=== PATIENT | female | born 2000 | race Caucasian/White ===

== ENCOUNTER 2022-08-27 10:51 | Emergency (ER) | payer OTHER ==
--- NOTE | 2022-08-27 12:07 | ERPHSYRPT ---
- History of Present Illness Source: patient Exam Limitations: no limitations Patient Subjective Stated Complaint: "I get nervous with needles, I was getting my labs drawn and got some chest pain". Triage Nursing Assessment: Pt presents to ER from Outpatient labs for a near syncopal episode during lab draw. Pt admits to having fear of needles and "chest pains" when she gets nervous. Not diagnosed with anxiety but states she thinks it maybe. Pt is alert and oriented x 3 upon arrival to ER. Skin is hot and diaphretic. Pt denies any pain. Pt states feels better now and doesn't have many complaints. Lab staff states she was having outpatient labs due to chest pain complaints so they thought she should be evaluated in ER. Pt consents to being seen in ER. Witnessed: unwitnessed, other Prior Episodes: single episode today Timing/Duration: today Precipitating Factors: none Loss of Consciousness: brief (seconds) Charcter of event(s): felt faint, almost passed out Hx Tetanus, Diphtheria Vaccination/Date Given: Yes Hx Influenza Vaccination/Date Given: Yes Hx Pneumococcal Vaccination/Date Given: No Immunizations Up to Date: Yes <SHRADDHA MICHAEL - Last Filed: 08/27/22 13:30> <MUKESH DYSON - Last Filed: 08/27/22 14:04> - History of Present Illness Time Seen by Provider: 08/27/22 11:29 Physician History: This is a 22-year-old patient with known history of panic attacks and syncope presenting to the ED after witnessed syncopal episode at the lab . Patient states that she has had panic attacks for a year, history of intermittent syncopal episodes for a year. -Does not know if she has any triggers for the panic attacks or for syncopal episode. -Reports a syncopal episode is not positional, denies any chest pain with, denies headache. -States that she had gone to her primary care physician today to discuss panic attack, and the PCP ordered some lab. -Patient was at the lab during her blood work done, that she is scared of need, dates that she thinks she had another panic attack where felt left-sided chest pain and then she passed out a few minutes. Patient thinks she got diaphoretic and nauseous during the episode. States that she is scared of needles. -Ports that she is completely fine now. -She denies any fever/abdominal pain/shortness of breath/pulm bladder symptoms -LMP was 1 month ago -Chest pain-states that she felt left-sided chest pain for she passed out. Reports intermittent history of chest pain, no aggravating or relieving symptoms, nonradiating. (SHRADDHA MICHAEL) Allergies/Adverse Reactions: No Known Drug Allergies Allergy (Verified 08/27/22 11:30) Travel Risk - International Travel Have you traveled outside of the country in past 3 weeks: No - Coronavirus Screening Are you exhibiting any of the following symptoms?: No Close contact with a COVID-19 positive Pt in past 14-21 Days: No - Vaccine Status Have you recieved a Covid-19 vaccination: Yes Slot Attendant: Moderna - Vaccination Dates Date of 2cond Vaccination (if applicable): n/a <REHANASHRADDHA BAZZI - Last Filed: 08/27/22 13:30> - Past Medical History Pertinent Past Medical History: No - Past Surgical History Past Surgical History: No - Social History Smoking Status: Never smoker Exposure to second hand smoke: No Drug Use: none Patient Lives Alone: No - Female History Hx Last Menstrual Period: 07/14/2022 Hx Now: No <REHANAJLUISSHRADDHA - Last Filed: 08/27/22 13:30> - Review of Systems Constitutional: No Symptoms Eyes: No Symptoms Ears, Nose, & Throat: No Symptoms Respiratory: No Symptoms Cardiac: Chest Pain, Syncope, No Palpitations Genitourinary Symptoms: No Symptoms Musculoskeletal: No Symptoms Skin: No Symptoms Neurological: No Symptoms Psychological: No Symptoms All Other Systems: Reviewed and Negative <REHANASHRADDHA BAZZI - Last Filed: 08/27/22 13:30> Physical Exam - Thornton Coma Scale Best Eye Response (Thornton): (4) open spontaneously Best Verbal Response (Jerald): (5) oriented Best Motor Response (Thornton): (6) obeys commands Thornton Total: 15 - Physical Exam Eye Exam: bilateral eye: normal inspection, PERRL, EOMI Ears, Nose, Throat Exam: normal ENT inspection, TMs normal, pharynx normal, moist mucous membranes, pharyngeal erythema Neck Exam: normal inspection, non-tender, supple, full range of motion Respiratory: normal breath sounds, lungs clear, airway intact Cardiovascular: regular rate/rhythm, normal heart sounds, normal peripheral pulses Gastrointestinal: soft, normal bowel sounds, No tenderness Back Exam: normal inspection Extremity Exam: normal inspection, normal range of motion Peripheral Pulses: carotid (R): 4+, carotid (L): 4+, dorsalis-pedis (R): 4+, dorsalis-pedis (L): 4+ Mental Status: alert, oriented x 3, cooperative, 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 Exam: normal hearing, normal speech, PERRL Coordination/Gait: normal finger to nose, normal gait, normal cerebellar function Motor/Sensory: no motor deficit, no sensory deficit Skin Exam: normal color SpO2: 97 <SHRADDHA MICHAEL - Last Filed: 08/27/22 13:30> - Nursing Vital Signs Nursing Vital Signs: Initial Vital Signs Temperature 97.6 F 08/27/22 11:23 Pulse Rate 82 08/27/22 11:23 Respiratory Rate 18 08/27/22 11:23 Blood Pressure 119/68 08/27/22 11:23 O2 Sat by Pulse Oximetry 97 08/27/22 11:23 Pain Scale Pain Intensity 0 - Course Nursing assessment & vital signs reviewed: Yes EKG Interpreted by Me: Sinus Rhythm Rhythm Strip: Rate, Normal Sinus Rhythm <REHANASHRADDHA BAZZI - Last Filed: 08/27/22 13:30> Ordered Tests: Active Orders 24 hr Category Date Time Status EKG-ER Only STAT Care 08/27/22 11:55 Active CHEST 1 VIEW (PORTABLE) Stat Exams 08/27/22 11:56 Completed BMP Stat Lab 08/27/22 12:15 Completed CBC W DIFF Routine Lab 08/27/22 10:57 Completed CBC W DIFF Stat Lab 08/27/22 11:55 Completed CK-Creatinine Phosphokinase Stat Lab 08/27/22 12:15 Completed CMP Routine Lab 08/27/22 10:57 Completed CULTURE,URINE Stat Lab 08/27/22 13:12 Received HCG QUALITATIVE,SERUM Stat Lab 08/27/22 12:15 Completed LIPID PROFILE Routine Lab 08/27/22 10:57 Completed TROPONIN Q4H Lab 08/27/22 12:15 Completed TROPONIN Q4H Lab 08/27/22 16:00 Ordered TROPONIN Q4H Lab 08/27/22 20:00 Ordered TSH, 3RD Generation Routine Lab 08/27/22 10:57 Completed UA W/RFX UR CULTURE Stat Lab 08/27/22 13:12 Completed Lab/Rad Data: Laboratory Result Diagrams 08/27/22 11:55 08/27/22 12:15 Laboratory Results 08/27/22 08/27/22 08/27/22 Range/Units 13:12 12:15 12:15 WBC (4.0-10.5) x10^3/uL RBC (4.1-5.4) x10^6/uL Hgb (12.0-16.0) g/dL Hct (35-47) % MCV (78-100) fL MCH (26-32) pg MCHC (32-36) g/dL RDW (11.5-14.0) % Plt Count (150-450) x10^3/uL MPV (7.5-11.0) fL Gran % (36.0-66.0) % Immature Gran % (Auto) (0.00-0.4) % Nucleat RBC Rel Count (0.00-0.1) % Eos # (Auto) (0-0.5) x10^3/uL Immature Gran # (Auto) (0.00-0.03) x10^3u/L Absolute Lymphs (auto) (1.0-4.6) x10^3/uL Absolute Monos (auto) (0.0-1.3) x10^3/uL Absolute Nucleated RBC (0.00-0.01) x10^3u/L Lymphocytes % (24.0-44.0) % Monocytes % (0.0-12.0) % Eosinophils % (0.00-5.0) % Basophils % (0.0-0.4) % Absolute Granulocytes (1.4-6.9) x10^3/uL Basophils # (0-0.4) x10^3/uL Sodium (137-145) mmol/L Potassium (3.5-5.1) mmol/L Chloride (98-107) mmol/L Carbon Dioxide (22-30) mmol/L Anion Gap (5-15) MEQ/L BUN (7-17) mg/dL Creatinine (0.52-1.04) mg/dL Estimated GFR ML/MIN Glucose (74-106) mg/dL Hemoglobin A1c (4.5-6.0) % Calcium (8.4-10.2) mg/dL Total Bilirubin (0.2-1.3) mg/dL AST (14-36) U/L ALT (0-35) U/L Alkaline Phosphatase (38-126) U/L Creatine Kinase (30-135) U/L Troponin I < 0.012 (0.000-0.034) ng/mL Serum Total Protein (6.3-8.2) g/dL Albumin (3.5-5.0) g/dL Triglycerides (30-150) mg/dL Cholesterol (50-200) mg/dL LDL Cholesterol (30-100) mg/dL HDL Cholesterol (40-60) mg/dL Heart Disease Risk Ratio 25-OH Vitamin D Total (30-100) ng/mL Free T4 (0.78-2.19) ng/dL TSH 3rd Generation (0.47-4.68) mIU/L Serum , Qual NEGATIVE (Negative) Urine Color Yellow (Yellow) Urine Appearance Cloudy A (Clear) Urine pH 7.5 (4.6-8.0) Ur Specific Wolcott 1.020 (1.005-1.030) Urine Protein Trace A (Negative) Urine Glucose (UA) Negative (Negative) mg/dL Urine Ketones Negative (Negative) Urine Blood Small A (Negative) Urine Nitrite Negative (Negative) Urine Bilirubin Negative (Negative) Urine Urobilinogen 0.2 (0.2) mg/dL Ur Leukocyte Esterase Moderate A (Negative) U Hyaline Cast (Auto) 6-10 A (0-2) /LPF Urine Microscopic RBC 0-2 (0-5) /HPF Urine Microscopic WBC 21-50 A (0-5) /HPF Ur Epithelial Cells Moderate A (None Seen) /HPF Urine Bacteria Many A (None Seen) /HPF Urine Culture Reflexed YES (NO) 08/27/22 08/27/22 08/27/22 Range/Units 12:15 11:55 10:57 WBC 5.8 (4.0-10.5) x10^3/uL RBC 3.83 L (4.1-5.4) x10^6/uL Hgb 11.3 L (12.0-16.0) g/dL Hct 35.0 (35-47) % MCV 91.4 (78-100) fL MCH 29.5 (26-32) pg MCHC 32.3 (32-36) g/dL RDW 13.3 (11.5-14.0) % Plt Count 343 (150-450) x10^3/uL MPV 9.5 (7.5-11.0) fL Gran % 58.7 (36.0-66.0) % Immature Gran % (Auto) 0.2 (0.00-0.4) % Nucleat RBC Rel Count 0.0 (0.00-0.1) % Eos # (Auto) 0.04 (0-0.5) x10^3/uL Immature Gran # (Auto) 0.01 (0.00-0.03) x10^3u/L Absolute Lymphs (auto) 1.93 (1.0-4.6) x10^3/uL Absolute Monos (auto) 0.39 (0.0-1.3) x10^3/uL Absolute Nucleated RBC 0.00 (0.00-0.01) x10^3u/L Lymphocytes % 33.0 (24.0-44.0) % Monocytes % 6.7 (0.0-12.0) % Eosinophils % 0.7 (0.00-5.0) % Basophils % 0.7 (0.0-0.4) % Absolute Granulocytes 3.43 (1.4-6.9) x10^3/uL Basophils # 0.04 (0-0.4) x10^3/uL Sodium 144 (137-145) mmol/L Potassium 3.8 (3.5-5.1) mmol/L Chloride 109 H (98-107) mmol/L Carbon Dioxide 24 (22-30) mmol/L Anion Gap 14.1 (5-15) MEQ/L BUN 14 (7-17) mg/dL Creatinine 0.73 (0.52-1.04) mg/dL Estimated GFR > 60.0 ML/MIN Glucose 103 (74-106) mg/dL Hemoglobin A1c 4.62 (4.5-6.0) % Calcium 9.5 (8.4-10.2) mg/dL Total Bilirubin (0.2-1.3) mg/dL AST (14-36) U/L ALT (0-35) U/L Alkaline Phosphatase (38-126) U/L Creatine Kinase 358 H (30-135) U/L Troponin I (0.000-0.034) ng/mL Serum Total Protein (6.3-8.2) g/dL Albumin (3.5-5.0) g/dL Triglycerides (30-150) mg/dL Cholesterol (50-200) mg/dL LDL Cholesterol (30-100) mg/dL HDL Cholesterol (40-60) mg/dL Heart Disease Risk Ratio 25-OH Vitamin D Total (30-100) ng/mL Free T4 (0.78-2.19) ng/dL TSH 3rd Generation (0.47-4.68) mIU/L Serum , Qual (Negative) Urine Color (Yellow) Urine Appearance (Clear) Urine pH (4.6-8.0) Ur Specific Wolcott (1.005-1.030) Urine Protein (Negative) Urine Glucose (UA) (Negative) mg/dL Urine Ketones (Negative) Urine Blood (Negative) Urine Nitrite (Negative) Urine Bilirubin (Negative) Urine Urobilinogen (0.2) mg/dL Ur Leukocyte Esterase (Negative) U Hyaline Cast (Auto) (0-2) /LPF Urine Microscopic RBC (0-5) /HPF Urine Microscopic WBC (0-5) /HPF Ur Epithelial Cells (None Seen) /HPF Urine Bacteria (None Seen) /HPF Urine Culture Reflexed (NO) 08/27/22 08/27/22 08/27/22 Range/Units 10:57 10:57 10:57 WBC 5.5 (4.0-10.5) x10^3/uL RBC 4.09 L (4.1-5.4) x10^6/uL Hgb 12.2 (12.0-16.0) g/dL Hct 38.1 (35-47) % MCV 93.2 (78-100) fL MCH 29.8 (26-32) pg MCHC 32.0 (32-36) g/dL RDW 13.2 (11.5-14.0) % Plt Count 360 (150-450) x10^3/uL MPV 9.6 (7.5-11.0) fL Gran % 55.0 (36.0-66.0) % Immature Gran % (Auto) 0.2 (0.00-0.4) % Nucleat RBC Rel Count 0.0 (0.00-0.1) % Eos # (Auto) 0.07 (0-0.5) x10^3/uL Immature Gran # (Auto) 0.01 (0.00-0.03) x10^3u/L Absolute Lymphs (auto) 2.12 (1.0-4.6) x10^3/uL Absolute Monos (auto) 0.23 (0.0-1.3) x10^3/uL Absolute Nucleated RBC 0.00 (0.00-0.01) x10^3u/L Lymphocytes % 38.8 (24.0-44.0) % Monocytes % 4.2 (0.0-12.0) % Eosinophils % 1.3 (0.00-5.0) % Basophils % 0.5 (0.0-0.4) % Absolute Granulocytes 3.01 (1.4-6.9) x10^3/uL Basophils # 0.03 (0-0.4) x10^3/uL Sodium 145 (137-145) mmol/L Potassium 4.3 (3.5-5.1) mmol/L Chloride 109 H (98-107) mmol/L Carbon Dioxide 24 (22-30) mmol/L Anion Gap 16.1 H (5-15) MEQ/L BUN 12 (7-17) mg/dL Creatinine 0.76 (0.52-1.04) mg/dL Estimated GFR > 60.0 ML/MIN Glucose 104 (74-106) mg/dL Hemoglobin A1c (4.5-6.0) % Calcium 9.8 (8.4-10.2) mg/dL Total Bilirubin 1.20 (0.2-1.3) mg/dL AST 34 (14-36) U/L ALT 30 (0-35) U/L Alkaline Phosphatase 31 L (38-126) U/L Creatine Kinase (30-135) U/L Troponin I (0.000-0.034) ng/mL Serum Total Protein 8.5 H (6.3-8.2) g/dL Albumin 4.9 (3.5-5.0) g/dL Triglycerides 73 (30-150) mg/dL Cholesterol 185 (50-200) mg/dL LDL Cholesterol 111 H (30-100) mg/dL HDL Cholesterol 45 (40-60) mg/dL Heart Disease Risk Ratio 4.1 25-OH Vitamin D Total 75.2 (30-100) ng/mL Free T4 0.81 (0.78-2.19) ng/dL TSH 3rd Generation 2.390 (0.47-4.68) mIU/L Serum , Qual (Negative) Urine Color (Yellow) Urine Appearance (Clear) Urine pH (4.6-8.0) Ur Specific Wol[place] (1.005-1.030) Urine Protein (Negative) Urine Glucose (UA) (Negative) mg/dL Urine Ketones (Negative) Urine Blood (Negative) Urine Nitrite (Negative) Urine Bilirubin (Negative) Urine Urobilinogen (0.2) mg/dL Ur Leukocyte Esterase (Negative) U Hyaline Cast (Auto) (0-2) /LPF Urine Microscopic RBC (0-5) /HPF Urine Microscopic WBC (0-5) /HPF Ur Epithelial Cells (None Seen) /HPF Urine Bacteria (None Seen) /HPF Urine Culture Reflexed (NO) <SHRADDHA MICHAEL - Last Filed: 08/27/22 13:30> - Progress Counseled pt/family regarding: lab results, diagnosis, need for follow-up <MUKESH DYSON - Last Filed: 08/27/22 14:04> - Progress Progress Note: 08/27/22 13:00 pt asymptomatic on arrival EKG shows sinus rhythy with HR 72 A1c 4.6 CBC- WNL 08/27/22 13:01 care handd over to at shift change (SHRADDHA MICHAEL) Hb 11.3, Troponin neg x 1, EKG wnl, TSH wnl. Patient UA showed signs of pyuria, but denies urinary sxs. Will start patient on FeSO4 and order iron studies. Will not start abx for pyuria due to lack of sxs. Patient feels much improved and feels safe going home. 08/27/22 13:59 (MUKESH DYSON) Medical Desision Making - Risk of complications The pt has a mod risk of morbidity or mortality based on: Need for prescription drug management <MUKESH DYSON - Last Filed: 08/27/22 14:04> <SHRADDHA MICHAEL - Last Filed: 03/17/23 13:30> - Departure Departure Disposition: Home Critical Care Time: No <MUKESH DYSON - Last Filed: 08/27/22 14:04> - Departure Clinical Impression: Anemia, Near syncope Condition: Good Referrals: [facility] [Primary Care Provider] - Follow up/PCP as directed Instructions: Syncope (Fainting) (DC) Prescriptions: Ferrous Sulfate 325 mg [Feosol 325 mg] 325 mg PO DAILY 30 Days #30 tablet
[2022-08-27 12:32] LABS: Absolute Neutrophil Ct (ANC) 3.43 x10^3/uL (1.4-6.9); BASOPHIL % 0.7 % (0.0-0.4); Basophil (Absolute #) 0.04 x10^3/uL (0-0.4); Eosinophil % 0.7 % (0.00-5.0); Eosinophil (Absolute #) 0.04 x10^3/uL (0-0.5); Hemoglobin 11.3 g/dL (12.0-16.0); IMMATURE GRAN # 0.01 x10^3u/L (0.00-0.03); IMMATURE GRAN % 0.2 % (0.00-0.4); Lymphocyte (Absolute #) 1.93 x10^3/uL (1.0-4.6); Mean Cell Volume 91.4 fL (78-100); Mean Corpuscular Hemoglobin 29.5 pg (26-32); Mean Corpuscular Hgb Concent. 32.3 g/dL (32-36); Mean Platelet Volume 9.5 fL (7.5-11.0); Monocyte (Absolute #) 0.39 x10^3/uL (0.0-1.3); Monocytes % 6.7 % (0.0-12.0); Neutrophil % 58.7 % (36.0-66.0); Platelet Count 343 x10^3/uL (150-450); Red Blood Count 3.83 x10^6/uL (4.1-5.4); Red Cell Distribution Width 13.3 % (11.5-14.0); White Blood Count 5.8 x10^3/uL (4.0-10.5)
[2022-08-27 12:46] LABS: ANION GAP 14.1 MEQ/L (5-15); BLOOD UREA NITROGEN 14 mg/dL (7-17); CHLORIDE 109 mmol/L (98-107); CK-Creatinine Phosphokinase 358 U/L (30-135); Calcium 9.5 mg/dL (8.4-10.2); Carbon Dioxide 24 mmol/L (22-30); Creatinine 1 0.73 mg/dL (0.52-1.04); EST GLOMERULAR FILTRATION RATE > 60.0 ML/MIN; Glucose 103 mg/dL (74-106); Potassium 3.8 mmol/L (3.5-5.1); SODIUM 144 mmol/L (137-145)
--- NOTE | 2022-08-27 13:00 | XRAY ---
Indication: Chest pain. Comparison: None Portable chest demonstrates normal heart, lungs, and bony thorax with incidental azygos lobe.
[2022-08-27 13:53] LABS: Appearance Cloudy (Clear); Bacteria Many /HPF (None Seen); Bilirubin Negative (Negative); Blood Small (Negative); Epithelial Cells Moderate /HPF (None Seen); Glucose, Urine Negative (Negative); Ketones Negative (Negative); Leukocyte Esterase Moderate (Negative); Nitrite Negative (Negative); Ph 7.5 (4.6-8.0); Protein,Urine Dip Trace (Negative); RBC 0-2 /HPF (0-5); Urobilinogen 0.2 mg/dL (0.2); WBC 21-50 /HPF (0-5)
[2022-08-27 13:54] LABS: ADD URINE CULTURE? YES (NO)
[2022-08-27 14:08] VITALS: BP 180/91; PULSE 95; O2SAT 96
[2022-08-27 14:41] LABS: Iron 60 ug/dL (37-170); Iron Saturation 14 % (20-39); TIBC 427 ug/dL (265-462)
== END 2022-08-27 14:21 | disposition home or self-care (01) ==
LOC: ED 10:51 → SUNRISE 10:51 → EDSTATUS 11:12 → ED 14:21
DX: D64.9 Anemia, unspecified (principal); R55 Syncope and collapse
CPT/HCPCS: 36415; 71045; 80048; 80053; 80061; 81001; 82306; 82550; 82728; 83036; 83540; 83550; 83721; 84439; 84443; 84484; 84703; 85025; 85060; 87086; 93005; 99283